=== PATIENT | female | born 2000 | race Caucasian/White ===

== ENCOUNTER 2022-01-15 18:32 | Emergency (ER) | payer OTHER ==
[2022-01-15 18:43] VITALS: RESP 18
[2022-01-15] MEDS ORDERED: SODIUM CHLORIDE 0.9% 1,000 ML IV STA (20:13)
[2022-01-15] MEDS ORDERED: MORPHINE SULFATE 4 MG/ML SYRINGE IV STA (20:13)
--- NOTE | 2022-01-15 20:21 | ED ---
Abdominal Pain HPI - General Chief Complaint: Abdominal Pain Stated Complaint: abd pain Time Seen by Provider: 01/15/22 20:13 Source: patient, RN notes reviewed Mode of arrival: ambulatory Limitations: no limitations - History of Present Illness Initial Comments: Patient is a 21-year-old female presents to the emergency room with complaints of right upper quadrant however this pain is primarily located in the pleuritic region at the base of her ribs on the right side she reports that the pain is primarily anteriorly and does not radiate. She states that the pain is has been ongoing for approximately 4-5 days but states that the pain became significant today where she was unable to tolerate it. She reports that any slight movement including a deep inspiration makes the pain worse. She denies any nausea, vomiting, diarrhea, typical chest pain, shortness of breath, fevers or chills. She does report having COVID approximately 4 weeks ago and again approximately one month ago but denies any new Covid exposure. Overall she is healthy and denies any significant past medical history and does not take any medications on a regular basis. - Related Data Previous Rx's Medication Instructions Recorded Azithromycin [Zithromax Z Pack] 1 tab PO DIRECTED #6 tab 01/16/22 Allergies Allergy/AdvReac Type Severity Reaction Status Date / Time No Known Allergies Allergy Verified 01/15/22 18:42 Review of Systems ROS Statement: Those systems with pertinent positive or pertinent negative responses have been documented in the HPI. ROS Other: All systems not noted in ROS Statement are negative. Past Medical History Past Medical History: No Reported History History of Any Multi-Drug Resistant Organisms: None Reported Additional Past Surgical History / Comment(s): cyst removed from right hand 2007. Past Psychological History: Anxiety, Depression Smoking Status: Never smoker Past Alcohol Use History: Occasional Past Drug Use History: None Reported General Exam General appearance: alert, in no apparent distress Head exam: Present: atraumatic, normocephalic, normal inspection Eye exam: Present: normal appearance, PERRL, EOMI. Absent: scleral icterus, conjunctival injection, periorbital swelling ENT exam: Present: normal exam, mucous membranes moist Neck exam: Present: normal inspection Respiratory exam: Present: normal lung sounds bilaterally. Absent: respiratory distress, wheezes, rales, rhonchi, stridor Cardiovascular Exam: Present: regular rate, normal rhythm, normal heart sounds. Absent: systolic murmur, diastolic murmur, rubs, gallop, clicks GI/Abdominal exam: Present: soft, normal bowel sounds. Absent: distended, tenderness, guarding, rebound, rigid Extremities exam: Present: normal inspection. Absent: pedal edema, joint swelling Back exam: Present: normal inspection. Absent: CVA tenderness (R), CVA tende rness (L) Neurological exam: Present: alert, oriented X3, CN II-XII intact Psychiatric exam: Present: normal affect, normal mood Skin exam: Present: warm, dry, intact, normal color. Absent: rash Course Vital Signs 01/15/22 18:38 Temperature 97.9 F Pulse Rate 112 H Respiratory 18 Rate O2 Sat by Pulse 100 Oximetry Medical Decision Making - Medical Decision Making 21-year-old female with complaints of right upper quadrant pain that is more in the rib cage region. Computed tomography scan of the abdomen and pelvis ordered by triage nurse which revealed small right pleural effusion consistent with patient's pain. Abdominal portion of computed tomography scan without anomalies. Urine for negative. Will check CBC, CMP along with urinalysis and Covid test.. Will give Toradol for pain. Labs reveal mildly elevated leukocytosis at 11.2. Covid negative. Slightly low sodium and bicarb level. No evidence of dehydration. Urinalysis shows occasional bacteria no significant UTI symptoms noted. Will treat pleural effusion with with Zithromax encouraged follow-up with her primary care provider for repeat chest x-ray in approximately 1 week. Encouraged use of ibuprofen for pain as needed. Will discharge home. We'll keep off work for the next 24 hours. case discussed with Dr. Marcus. - Lab Data Result diagrams: 01/15/22 23:06 01/15/22 23:06 Lab Results 01/15/22 01/15/22 01/15/22 Range/Units 18:52 23:06 23:06 WBC 11.2 H (3.8-10.6) k/uL RBC 4.46 (3.80-5.40) m/uL Hgb 12.2 (11.4-16.0) gm/dL Hct 37.6 (34.0-46.0) % MCV 84.2 (80.0-100.0) fL MCH 27.3 (25.0-35.0) pg MCHC 32.4 (31.0-37.0) g/dL RDW 13.1 (11.5-15.5) % Plt Count 397 (150-450) k/uL MPV 7.9 Neutrophils % 68 % Lymphocytes % 25 % Monocytes % 5 % Eosinophils % 2 % Basophils % 0 % Neutrophils # 7.6 (1.3-7.7) k/uL Lymphocytes # 2.8 (1.0-4.8) k/uL Monocytes # 0.5 (0-1.0) k/uL Eosinophils # 0.2 (0-0.7) k/uL Basophils # 0.0 (0-0.2) k/uL Hypochromasia Slight Sodium 134 L (137-145) mmol/L Potassium (3.5-5.1) mmol/L Chloride 104 (98-107) mmol/L Carbon Dioxide 19 L (22-30) mmol/L Anion Gap 11 mmol/L BUN 12 (7-17) mg/dL Creatinine 0.68 (0.52-1.04) mg/dL Est GFR (CKD-EPI)AfAm >90 (>60 ml/min/1.73 sqM) Est GFR (CKD-EPI)NonAf >90 (>60 ml/min/1.73 sqM) Glucose 89 (74-99) mg/dL Calcium 9.1 (8.4-10.2) mg/dL Total Bilirubin 1.4 H (0.2-1.3) mg/dL AST 76 H (14-36) U/L ALT 41 H (4-34) U/L Alkaline Phosphatase 95 (38-126) U/L Total Protein 8.2 (6.3-8.2) g/dL Albumin 4.6 (3.5-5.0) g/dL Amylase 62 (30-110) U/L Lipase 48 (23-300) U/L Urine Color Urine Appearance (Clear) Urine pH (5.0-8.0) Ur Specific Blair (1.001-1.035) Urine Protein (Negative) Urine Glucose (UA) (Negative) Urine Ketones (Negative) Urine Blood (Negative) Urine Nitrite (Negative) Urine Bilirubin (Negative) Urine Urobilinogen (<2.0) mg/dL Ur Leukocyte Esterase (Negative) Urine RBC (0-5) /hpf Urine WBC (0-5) /hpf Ur Squamous Epith Cells (0-4) /hpf Urine Bacteria (None) /hpf Hyaline Casts (0-2) /lpf Urine Mucus (None) /hpf Urine Yeast (Budding) (None) /hpf Urine HCG, Qual Not Detected (Not Detectd) Coronavirus (PCR) (Not Detectd) 01/15/22 01/15/22 Range/Units 23:31 23:35 WBC (3.8-10.6) k/uL RBC (3.80-5.40) m/uL Hgb (11.4-16.0) gm/dL Hct (34.0-46.0) % MCV (80.0-100.0) fL MCH (25.0-35.0) pg MCHC (31.0-37.0) g/dL RDW (11.5-15.5) % Plt Count (150-450) k/uL MPV Neutrophils % % Lymphocytes % % Monocytes % % Eosinophils % % Basophils % % Neutrophils # (1.3-7.7) k/uL Lymphocytes # (1.0-4.8) k/uL Monocytes # (0-1.0) k/uL Eosinophils # (0-0.7) k/uL Basophils # (0-0.2) k/uL Hypochromasia Sodium (137-145) mmol/L Potassium (3.5-5.1) mmol/L Chloride (98-107) mmol/L Carbon Dioxide (22-30) mmol/L Anion Gap mmol/L BUN (7-17) mg/dL Creatinine (0.52-1.04) mg/dL Est GFR (CKD-EPI)AfAm (>60 ml/min/1.73 sqM) Est GFR (CKD-EPI)NonAf (>60 ml/min/1.73 sqM) Glucose (74-99) mg/dL Calcium (8.4-10.2) mg/dL Total Bilirubin (0.2-1.3) mg/dL AST (14-36) U/L ALT (4-34) U/L Alkaline Phosphatase (38-126) U/L Total Protein (6.3-8.2) g/dL Albumin (3.5-5.0) g/dL Amylase (30-110) U/L Lipase (23-300) U/L Urine Color Yellow Urine Appearance Cloudy H (Clear) Urine pH 6.0 (5.0-8.0) Ur Specific Blair 1.029 (1.001-1.035) Urine Protein Trace H (Negative) Urine Glucose (UA) Negative (Negative) Urine Ketones Trace H (Negative) Urine Blood Moderate H (Negative) Urine Nitrite Negative (Negative) Urine Bilirubin Negative (Negative) Urine Urobilinogen <2.0 (<2.0) mg/dL Ur Leukocyte Esterase Small H (Negative) Urine RBC 16 H (0-5) /hpf Urine WBC 10 H (0-5) /hpf Ur Squamous Epith Cells 7 H (0-4) /hpf Urine Bacteria Occasional H (None) /hpf Hyaline Casts 1 (0-2) /lpf Urine Mucus Few H (None) /hpf Urine Yeast (Budding) Rare H (None) /hpf Urine HCG, Qual (Not Detectd) Coronavirus (PCR) Not Detected (Not Detectd) Disposition Clinical Impression: Pleural effusion, right Disposition: HOME SELF-CARE Condition: Stable Additional Instructions: Please complete course of antibiotics as prescribed. Please utilize Motrin [id number] as needed for pain. Please return to the Emergency Department if symptoms worsen or any other concerns. Prescriptions: Azithromycin [Zithromax Z Pack] 1 tab PO DIRECTED #6 tab Is patient prescribed a controlled substance at d/c from ED?: No Referrals: Nonstaff,Physician [Primary Care Provider] - 1-2 days Time of Disposition: 00:18
--- NOTE | 2022-01-15 22:13 | CT ---
EXAMINATION TYPE: CT abdomen pelvis wo con DATE OF EXAM: 01/15/2022 COMPARISON: None HISTORY: rlq pain for a few days CT DLP: 1810.4 mGycm Automated exposure control for dose reduction was used. Images obtained from the diaphragm to the floor the pelvis with no contrast. The lung bases are clear of infiltrate. There is small right-sided pleural effusion. Heart size is no rmal. No pericardial effusion. Liver spleen and stomach pancreas and gallbladder appear intact. The bile ducts are not dilated. There is no adrenal mass. Kidneys show normal size and contour. No hydronephrosis. Ureters are not di lated. There is no retroperitoneal adenopathy. Exam limited by motion. Bladder distends smoothly. The re is an anteverted uterus. There is IUD in the uterine fundus. No inguinal hernia. No pelvic mass. N o free fluid in the pelvis. The lumbar vertebrae have normal alignment. No compression fracture. Bony pelvis is intact. The hip j oints are intact. Appendix appears normal. There is no mesenteric edema. No ascites or free air. No sign of a bowel obs truction. IMPRESSION: Small right pleural effusion. Normal appendix.
[2022-01-15] MEDS ORDERED: KETOROLAC 15 MG/ML 1 ML VIAL IM STA (23:17)
[2022-01-15 23:19] LABS: Basophils % (A) 0 %; Eosinophils # (A) 0.2 k/uL (0-0.7); Eosinophils % (A) 2 %; HCT 37.6 % (34.0-46.0); HGB 12.2 gm/dL (11.4-16.0); Hypochromasia Slight; Lymphocytes # (A) 2.8 k/uL (1.0-4.8); Lymphocytes % (A) 25 %; MCH 27.3 pg (25.0-35.0); MCHC 32.4 g/dL (31.0-37.0); MCV 84.2 fL (80.0-100.0); Mean Platelet Volume 7.9; Monocytes # (A) 0.5 k/uL (0-1.0); Monocytes % (A) 5 %; Neutrophils # (A) 7.6 k/uL (1.3-7.7); Neutrophils % (A) 68 %; Platelet Count 397 k/uL (150-450); RBC 4.46 m/uL (3.80-5.40); RDW 13.1 % (11.5-15.5); WBC 11.2 k/uL (3.8-10.6)
[2022-01-15] MEDS ORDERED: KETOROLAC 15 MG/ML 1 ML VIAL IVP STA (23:21)
[2022-01-15 23:32] LABS: ALT 41 U/L (4-34); AST 76 U/L (14-36); African American GFR (CKD) >90 (>60 ml/min/1.73 sqM); Albumin 4.6 g/dL (3.5-5.0); Alkaline Phosphatase 95 U/L (38-126); Amylase 62 U/L (30-110); Anion Gap 11 mmol/L; Blood Urea Nitrogen 12 mg/dL (7-17); Calcium 9.1 mg/dL (8.4-10.2); Carbon Dioxide 19 mmol/L (22-30); Chloride 104 mmol/L (98-107); Glucose 89 mg/dL (74-99); Lipase 48 U/L (23-300); Non-African American GFR(CKD) >90 (>60 ml/min/1.73 sqM); Sodium 134 mmol/L (137-145); Total Bilirubin 1.4 mg/dL (0.2-1.3); Total Protein 8.2 g/dL (6.3-8.2)
[2022-01-16 00:06] LABS: Appearance,Urine Cloudy (Clear); Bacteria,Urine Occasional /hpf; Bilirubin,Urine Negative (Negative); Blood,Urine Moderate (Negative); Budding Yeast,Urine Rare /hpf; Color,Urine Yellow; Glucose,Urine (UA) Negative (Negative); Hyaline Casts,Urine 1 /lpf (0-2); Ketones,Urine Trace (Negative); Leukocyte Esterase,Urine Small (Negative); Mucus,Urine Few /hpf; Nitrite,Urine Negative (Negative); Protein,Urine Trace (Negative); RBC,Urine 16 /hpf (0-5); Specific Gravity,Urine 1.029 (1.001-1.035); Squamous Epithelial Cell,Urine 7 /hpf (0-4); Urobilinogen,Urine <2.0 mg/dL (<2.0); WBC,Urine 10 /hpf (0-5)
[2022-01-16 01:40] VITALS: BP 138/75; PULSE 75; TEMP 98.4
== END 2022-01-16 01:40 | disposition home or self-care (01) ==
LOC: EC 18:32
DX: J90 Pleural effusion, not elsewhere classified (principal); Z20.822 Contact with and (suspected) exposure to COVID-19
CPT/HCPCS: 99284; 36415; 80053; 82150; 83690; 85025; 81025; 87635; 74176; 96374; J1885; 81001